=== PATIENT | female | born 1970 ===

== ENCOUNTER 2021-07-26 09:14 | Outpatient (CLI) | payer SELFPAY ==
--- NOTE | 2021-07-26 09:28 | NM_ITS ---
WS: [email or web address] NUCLEAR MEDICINE HIDA SCAN WITH GALLBLADDER EJECTION FRACTION HISTORY: ABDOMINAL PAIN COMPARISON: None available. TECHNIQUE: The patient was intravenously injected with 8.3 mCi of TC99m Mebrofenin. Immediate imaging over the right upper quadrant was followed by 5 minute image and additional images for a total of 60 minutes. Normal uptake of radiotracer throughout the liver. Activity identified in the gallbladder at 15 minutes and well distended by 60 minutes. Activity in the proximal small bowel was seen by 60 minutes. Good washout of the radiotracer from the liver by 60 minutes. The patient then drank 8 ounces of Ensure Plus. Ejection fraction at 60 minutes was 87%. Normal GB ej ection fraction is 35-75%. Post fatty meal symptoms: None. NM/NM hepatobiliary w phar* [id number] IMPRESSION: 1. Normal HIDA scan. 2. Normal gallbladder ejection fraction.
== END 2021-07-26 09:15 | disposition home or self-care (01) ==
LOC: RAD 09:22
PROVIDERS: Visit Provider Surgery
DX: R10.9 Unspecified abdominal pain (principal)
CPT/HCPCS: 78227; A9537

== ENCOUNTER → 2022-02-15 13:50 | Outpatient (BNVA) | payer MEDICAID, SELFPAY | PROVIDERS: Visit Provider Obstetrics & Gynecology | DX: Z01.419 Encounter for gynecological examination (general) (routine) without abnormal findings (principal) | CPT/HCPCS: 87624 ==

== ENCOUNTER 2022-04-17 11:00 | Outpatient (CLI) | payer MEDICAID, SELFPAY ==
--- NOTE | 2022-04-17 11:24 | US_ITS ---
WS: [email or web address] ULTRASOUND BILATERAL BREASTs HISTORY: Z85.3 - Personal history of malignant neoplasm of breast COMPARISON: None available. TECHNIQUE: 2-D and Doppler. Patient is status post bilateral mastectomies. Request is for ultrasound of the soft tissues along th e chest wall at the site of the mastectomy sites. The subcutaneous soft tissues are normal. Ultrasound is directed along the scar site. There is no rec urrent mass. No hypoechoic mass with irregular borders or shadowing. There is no breast tissue is andrew ntified. Normal appearance of the subcutaneous soft tissues of the chest wall. US/US breast BI complete [id number] IMPRESSION: BI-RADS: 2-Benign FOLLOW-UP: See Report Patient is status post bilateral mastectomies. Unless there is a new palpable s ite no additional imaging is necessary.
--- NOTE | 2022-04-17 11:45 | US_ITS ---
WS: [email or web address] ULTRASOUND SOFT TISSUES RIGHT superior humerus. HISTORY: R22.31 - Localized swelling, mass and lump, right upper limb COMPARISON: None available. TECHNIQUE: 2-D and color Doppler imaging is submitted. Ultrasound is directed to the area of palpable nodule in the upper RIGHT extremity. No mass is identi fied by ultrasound. There is a normal appearance of the soft tissues. No distortion of soft tissues o r skin thickening. No edema. No adenopathy. US/US soft tissue/extremity [id number] IMPRESSION: Normal soft tissue ultrasound RIGHT upper extremity.
== END 2022-04-17 11:01 | disposition home or self-care (01) ==
PROVIDERS: Visit Provider Obstetrics & Gynecology
DX: Z85.3 Personal history of malignant neoplasm of breast (principal); R22.31 Localized swelling, mass and lump, right upper limb
CPT/HCPCS: 76641; 76882

== ENCOUNTER 2022-05-23 16:35 | Outpatient (CLI) | payer MEDICAID, SELFPAY ==
[2022-05-23 17:20] LABS: Basophils % 0.2 %; Eosinophils # 0.2 10^3/uL (0.0-0.8); Eosinophils % 2.2 %; Hematocrit 38.4 % (37.0-47.0); Hemoglobin 12.8 g/dL (11.5-15.3); Lymphocytes # 2.1 10^3/uL (0.8-4.8); Lymphocytes % 24.6 %; Mean Corpuscular HGB Conc 33.3 g/dL (30.0-36.0); Mean Corpuscular Hemoglobin 31.6 pg (28.0-34.0); Mean Corpuscular Volume 94.8 fl (81-99); Mean Platelet Volume 9.2 fL (7.4-10.4); Monocytes # 0.6 10^3/uL (0.2-0.9); Monocytes % 7.5 %; Neutrophils # 5.59 10^3/uL (1.8-7.7); Neutrophils % 65.2 %; Nucleated Red Blood Cells % 0 %; Platelet Count 311 10^3/cmm (130-400); Red Blood Count 4.05 10^6/uL (4.1-5.3); Red Cell Distribution Width 12.1 % (12.1-15.1); White Blood Count 8.6 10^3/uL (4.0-10.0)
[2022-05-23 17:51] LABS: Alanine Aminotransferase 17 U/L (0-33); Albumin Level 4.4 g/dL (3.5-5.2); Alkaline Phosphatase 41 U/L (35-105); Aspartate Amino Transferase 18 U/L (0-32); Blood Urea Nitrogen 11 mg/dL (6-20); CA 15-3 5.6 U/mL (0-25); Calcium 9.2 mg/dL (8.5-10.5); Carbon Dioxide 27 mmol/L (22-29); Chloride 102 mmol/L (98-107); Globulin 3.1 g/dL (1.3-4.6); Glomerular Filtration Rate 105.8 mL/min (90-130); Glucose 90 mg/dL (65-115); Osmolality Calculated 279 mOsm/kg (285-295); Sodium 135 mmol/L (136-145); Total Bilirubin 0.2 mg/dL (0.15-1.2); Total Protein 7.5 g/dL (6.6-8.7)
[2022-05-23 17:52] LABS: Anion Gap 9.9 (5-19); Potassium 3.9 mmol/L (3.5-5.1)
[2022-05-26 02:29] LABS: CA 27.29 <10 U/mL (<38)
== END 2022-05-23 16:36 | disposition home or self-care (01) ==
LOC: LAB 16:42
PROVIDERS: PCP Family Medicine; Visit Provider Internal Medicine Medical Oncology
DX: C50.919 Malignant neoplasm of unspecified site of unspecified female breast (principal)
CPT/HCPCS: 80053; 85025; 86300

== ENCOUNTER → 2022-06-21 08:01 | Outpatient (BNVA) | payer MEDICAID, SELFPAY | PROVIDERS: PCP Family Medicine; Visit Provider Obstetrics & Gynecology | DX: N81.4 Uterovaginal prolapse, unspecified (principal) | CPT/HCPCS: 76830 ==

== ENCOUNTER → 2022-07-12 12:21 | Outpatient (BNVA) | payer MEDICAID, SELFPAY | PROVIDERS: PCP Family Medicine; Referring Provider Family Medicine; Visit Provider Internal Medicine | DX: E05.00 Thyrotoxicosis with diffuse goiter without thyrotoxic crisis or storm (principal); L68.0 Hirsutism | CPT/HCPCS: 36415; 82627; 83516; 84439; 84443; 84480 ==

== ENCOUNTER 2023-02-22 13:59 | Outpatient (CLI) | payer BC, SELFPAY ==
--- NOTE | 2023-02-22 14:00 | XR_ITS ---
WS: [email or web address] SCREENING DEXA SCAN Mo-DV CLINICAL INFORMATION: follow up COMPARISON: None. FINDINGS: The L1-L4 bone mineral density measures 1.074 g/cm2. This corresponds to a T score score of -0.9 and Z score of -1.1. Left femoral neck bone mineral density measures 0.978 g/cm2. This corresponds to a T score of -0.2 an d Z score of -0.2. Right femoral neck bone mineral density measures 0.994 g/cm2. This corresponds to a T score -0.1of an d Z score of -0.1. Mean femoral neck bone mineral density measures 0.986 g/cm2. This corresponds to a T score of -0.2 an d Z score of -0.2. IMPRESSION: Normal bone mineralization lumbar spine approaching osteopenia. Normal bone mineralization femoral ne cks. Patient's FRAX calculated 10 year probability for major osteoporotic fracture is 4.0% and osteoporoti c hip fracture is 0.2%.
== END 2023-02-22 14:00 | disposition home or self-care (01) ==
PROVIDERS: PCP Electrodiagnostic Medicine; Visit Provider Internal Medicine Medical Oncology
DX: Z13.820 Encounter for screening for osteoporosis (principal); C50.919 Malignant neoplasm of unspecified site of unspecified female breast
CPT/HCPCS: 77080

== ENCOUNTER 2023-03-19 16:16 | Outpatient (CLI) | payer BC, SELFPAY ==
--- NOTE | 2023-03-19 12:30 | PETR_ITS ---
PROCEDURE INFORMATION: Exam: PET/CT Skull Base to Mid-thigh Exam date and time: 03/19/2023 1:44 PM Age: 52 years old Clinical indication: Condition or disease; Primary cancer: Breast cancer; Initial oncological staging assessment; Prior surgery; Surgery date: 6+ months; Surgery type: Bilat mastectomy; Additional info: Follow up LABS AND CLINICAL REPORTS: Glucose: 114 mg/dl Treatment strategy for malignancy (PET staging): Initial Staging (PI) TECHNIQUE: Imaging protocol: Following at least four-hour fasting and following the injection of radiopharmaceutical, low dose CT images were obtained. Then, PET images were obtained. Attenuation corrected images were constructed using the CT scan. Fused images of PET and CT were reviewed. The standardized uptake values (SUV) reported below are maximum values within a region of interest, expressed in gm/ml. Exam includes orbital meatal line to mid-thigh. Radiopharmaceutical: 13.28 mCi F-18 FDG (Fluorodeoxyglucose), IV. Time of imaging post radiopharmaceutical administration: 1 hour Injection site: site COMPARISON: [place] [id number] 02/13/2023 11:40 AM FINDINGS: Brain: Visualized brain has normal physiologic uptake. Pharynx: No abnormal uptake. Larynx: No abnormal uptake. Lungs, pleura and trachea: Biapical lung scarring. Heart: Normal physiologic uptake. Mediastinal space: No abnormal uptake. Liver: No abnormal uptake. Gallbladder and bile ducts: No abnormal uptake. Pancreas: No abnormal uptake. Spleen: No abnormal uptake. Adrenal glands: No abnormal uptake. Kidneys and ureters: Normal physiologic uptake. Stomach and bowel: No abnormal uptake. Vasculature: No abnormal uptake. Lymph nodes: There is a left level 2 lymph node measuring 8 mm with mild uptake SUV max of 3.1 on series 3, image 31 nonspecific and most likely reactive. Bones/joints: No abnormal uptake in the visualized axial and appendicular skeleton. Soft tissues: Bilateral mastectomy postoperative changes. No abnormal uptake. PET/PET skulltothigh INITIAL [id number] IMPRESSION: 1. Bilateral mastectomy changes. No evidence of recurrent or metastatic disease. 2. Subcentimeter left level 2 lymph node with low-grade uptake is nonspecific and most likely reactive.
== END 2023-03-19 16:17 | disposition home or self-care (01) ==
LOC: RAD 16:16
PROVIDERS: PCP Electrodiagnostic Medicine; Visit Provider Internal Medicine Medical Oncology
DX: Z85.3 Personal history of malignant neoplasm of breast (principal); Z90.13 Acquired absence of bilateral breasts and nipples
CPT/HCPCS: 78815; A9552

== ENCOUNTER 2023-04-01 09:53 | Oncology outpatient (recurring) (ONCR) | payer BC, SELFPAY ==
[2023-04-01 10:35] VITALS: BP 122/79; PULSE 81; RESP 17; TEMP 36.9; O2SAT 99
[2023-04-01 10:39] LABS: Basophils % 0.2 %; Eosinophils # 0.3 10^3/uL (0.0-0.8); Eosinophils % 6.1 %; Hematocrit 41.3 % (36-47); Lymphocytes # 1.6 10^3/uL (0.8-4.8); Lymphocytes % 35.1 %; Mean Corpuscular HGB Conc 33.2 g/dL (30-55); Mean Corpuscular Hemoglobin 31.1 pg (27-33); Mean Corpuscular Volume 93.9 fl (85-98); Mean Platelet Volume 8.8 fL (7.4-10.4); Monocytes # 0.4 10^3/uL (0.2-0.9); Monocytes % 9.5 %; Neutrophils # 2.16 10^3/uL (1.8-7.7); Neutrophils % 48.9 %; Nucleated Red Blood Cells % 0 %; Platelet Count 288 10^3/cmm (157-399); Red Cell Distribution Width 12.9 % (12.1-15.1); White Blood Count 4.42 10^3/uL (3.29-11.43)
[2023-04-01 11:11] LABS: Alanine Aminotransferase 16 U/L (0-33); Albumin Level 4.5 g/dL (3.5-5.2); Alkaline Phosphatase 44 U/L (35-105); Anion Gap 13.3 (5-19); Aspartate Amino Transferase 17 U/L (0-32); Blood Urea Nitrogen 8 mg/dL (6-20); CA 15-3 5.7 U/mL (0-25); Calcium 9.2 mg/dL (8.5-10.5); Carbon Dioxide 27 mmol/L (22-29); Chloride 103 mmol/L (98-107); Globulin 2.9 g/dL (1.3-4.6); Glomerular Filtration Rate 88.6 mL/min (90-130); Glucose 90 mg/dL (65-115); Osmolality Calculated 286 mOsm/kg (285-295); Potassium 4.3 mmol/L (3.5-5.1); Sodium 139 mmol/L (136-145); Total Bilirubin 0.4 mg/dL (0.15-1.2); Total Protein 7.4 g/dL (6.6-8.7)
[2023-04-02 12:45] LABS: CA 27.29 <10 U/mL (<38)
== END 2023-04-02 23:59 | disposition home or self-care (01) ==
LOC: ONCMED 09:58
PROVIDERS: PCP Electrodiagnostic Medicine; Visit Provider Internal Medicine Medical Oncology
DX: C50.811 Malignant neoplasm of overlapping sites of right female breast (principal); Z79.899 Other long term (current) drug therapy
CPT/HCPCS: 36415; 80053; 85025; 86300

== ENCOUNTER 2023-05-14 13:12 | Outpatient (CLI) | payer BC, SELFPAY ==
--- NOTE | 2023-05-14 13:18 | US_ITS ---
WS: [email or web address] ULTRASOUND SOFT TISSUE INDICATION: Bilateral neck lumps. TECHNIQUE: Ultrasound soft tissue bilateral neck FINDINGS: Ultrasound soft tissue area of concern bilateral neck. In the area of interest, prominent b ilateral cervical lymph nodes are visualized the largest on the RIGHT measuring 1.2 x 1.0 cm and the largest on the LEFT measuring 1.5 x 1.1 cm. Lymph nodes demonstrate some cortical thickening with par tial replacement of the fatty hilum. Recommend further evaluation with contrast-enhanced neck CT. IMPRESSION: Prominent bilateral lymph nodes with cortical thickening and narrowing of the fatty hilum . Recommend further evaluation with contrast-enhanced neck CT.
== END 2023-05-14 13:13 | disposition home or self-care (01) ==
LOC: RAD 13:12
PROVIDERS: PCP Electrodiagnostic Medicine; Visit Provider Electrodiagnostic Medicine
DX: R59.0 Localized enlarged lymph nodes (principal)
CPT/HCPCS: 76536

== ENCOUNTER 2023-05-23 08:16 | Outpatient (CLI) | payer BC, SELFPAY ==
--- NOTE | 2023-05-23 08:30 | CT_ITS ---
WS: [email or web address] CT NECK TECHNIQUE: Noncontrast CT of the neck with coronal and sagittal reformatted images. CLINICAL INFORMATION: neck/jaw lumps COMPARISON: Ultrasound 05/14/2023 DLP: 157.[address] scans at [facility] use at least one of these dose optimization techniques: automated e xposure control; mA and/or kV adjustment per patient size (includes targeted exams where dose is matc hed to clinical indication); or iterative reconstruction. FINDINGS: Palpable marker overlying the RIGHT neck. Normal underlying sternocleidomastoid. A few norm al sized underlying lymph nodes bilaterally. Numerous normal sized bilateral cervical lymph nodes. No pathologic lymphadenopathy. Fibrosis in the lung apices. Paranasal sinuses are well aerated. Mastoid air cells are well aerated. Normal posterior nasopharynx and parapharyngeal fat. Parotid glands are normal. Normal submandibular glands. No evidence of supraglottic or glottic mass. Subglottic airway is patent. Opacification of the LEFT v allecula likely due to secretions. Recommend direct visualization. Normal piriform sinuses. Thyroid appears normal. Mild spondylitic changes cervical spine. IMPRESSION: 1. Slightly prominent but normal sized cervical lymph nodes deep to the palpable marker bilateral ne ck. No pathologic lymphadenopathy. 2. Normal salivary glands. 3. No evidence supraglottic or glottic mass. 4. Opacification of the LEFT vallecula likely due to secretions. Recommend direct visualization. 5. No other suspicious findings.
== END 2023-05-23 08:17 | disposition home or self-care (01) ==
LOC: RAD 08:16
PROVIDERS: PCP Electrodiagnostic Medicine; Visit Provider Internal Medicine Medical Oncology
DX: R22.1 Localized swelling, mass and lump, neck (principal); R22.0 Localized swelling, mass and lump, head; C50.919 Malignant neoplasm of unspecified site of unspecified female breast
CPT/HCPCS: 70490

== ENCOUNTER 2023-08-15 16:59 | Outpatient (CLI) | payer BC, SELFPAY ==
--- NOTE | 2023-08-15 17:00 | CT_ITS ---
WS: [email or web address] CT NECK WITH CONTRAST HISTORY: neck/jaw lumps. Compare to previous. TECHNIQUE: Contiguous 2 mm axial images are performed through the neck with intravenous contrast. Sag ittal and coronal reformats are also submitted. All CT scans at [facility] use at least one o f these dose optimization techniques: automated exposure control; mA and/or kV adjustment per patient size (includes targeted exams where dose is matched to clinical indication); or iterative reconstruc tion. CONTRAST: CONTRAST: Omnipaque 350; 100 mL IV. DLP: 131.86 mGy.cm COMPARISON: 05/23/2023 Reidentified is mild frothy secretions in the LEFT vallecula. Slightly less secretions than on the pr ior study. Direct visualization was recommended on the prior study to insert sure there was no underl payal abnormality. No enhancing mass identified. Oropharynx and nasopharynx are negative. Tongue base is negative. Torus tubarius and fossa of Rosenmuller and parapharyngeal fat are normal. There are small cervical chain lymph nodes previously described are reidentified without increase in size. No new lymph nodes. Thyroid gland and salivary glands are normally enhancing with no masses. No osseous abnormalities. Visualized portions of the skull base demonstrate no abnormalities. Orbits and globes are within norm al limits. No soft tissue masses. Visualized paranasal sinuses and mastoid air cells are normal. Lung apices are clear. IMPRESSION: 1. No cervical chain lymphadenopathy. Previously described small lymph nodes are reidentified. No ne w or increasing lymphadenopathy. 2. Small amount of frothy secretions remain in the LEFT vallecula. LEFT vallecula is slightly smalle r and asymmetric to the RIGHT. Direct visualization was recommended on the prior study. 3. No underlying mass at the site of the palpable markers.
[2023-08-15] MEDS: iohexol 350 mg/mL 500 mL Btl (per mL) IV (17:21)
== END 2023-08-15 17:00 | disposition home or self-care (01) ==
LOC: RAD 16:59
PROVIDERS: PCP Electrodiagnostic Medicine; Visit Provider Internal Medicine Medical Oncology
DX: C50.811 Malignant neoplasm of overlapping sites of right female breast (principal); R22.0 Localized swelling, mass and lump, head
CPT/HCPCS: 70491; Q9967